=== PATIENT | male | born 1970 | race Caucasian/White ===

== ENCOUNTER 2018-03-15 09:02 | Emergency (ER) | payer OTHER ==
[~2018-03-15] VITALS: Ht 177.8 cm; Wt 136.1 kg
[~2018-03-15 09:02] MED LIST: HYDROCODONE; Z.1.HYDROCHLOROTH12. PO
[2018-03-15] MEDS ORDERED: ONDANSETRON HCL INJ 2 MG/ML VIAL IV NR ×2 (09:20→11:02)
[2018-03-15] MEDS ORDERED: SODIUM CHLORIDE 0.9% 1000ML 1,000 ML IV STA (09:20)
[2018-03-15] MEDS ORDERED: PANTOPRAZOLE 40 MG 10ML VIAL IV NR (09:20)
[2018-03-15] MEDS ORDERED: KETOROLAC TROMETHAMINE 30 MG/ML VIAL IV NR (09:30)
[2018-03-15 09:42] LABS: BASOPHILS % 0.5 % (0.0-1.0); EOSINOPHILS # (AUTO) 0.2 (0.0-0.4); EOSINOPHILS % 1.8 % (0.0-6.0); HEMATOCRIT 49.3 % (38.2-49.6); HEMOGLOBIN 16.6 g/dL (14.0-18.0); LYMPHOCYTES # (AUTO) 2.6 (1.0-3.2); LYMPHOCYTES % 29.7 % (18.0-39.1); MEAN CORPUSCULAR HEMOGLOBIN 28.9 pg (28-32); MEAN CORPUSCULAR HGB CONC 33.7 g/dL (31-35); MEAN CORPUSCULAR VOLUME 85.7 fL (81-99); MONOCYTES # (AUTO) 0.6 (0.2-0.8); MONOCYTES % 7.3 % (4.4-11.3); NEUTROPHILS # (AUTO) 5.3 (2.1-6.9); NEUTROPHILS % 60.4 % (38.7-80.0); PLATELET COUNT 217 x10e3/uL (140-360); RED BLOOD COUNT 5.75 x10e6/uL (4.3-5.7); RED CELL DISTRIBUTION WIDTH 14.1 % (11.7-14.4)
[2018-03-15 09:44] LABS: CLARITY,URINE HAZY (CLEAR); COLOR,URINE YELLOW (YELLOW); KETONES,URINE NEGATIVE (NEGATIVE); LEUKOCYTE ESTERASE ,URINE NEGATIVE (NEGATIVE); NITRITE,URINE NEGATIVE (NEGATIVE); PROTEIN,URINE DIPSTICK NEGATIVE (NEGATIVE); URINE UROBILINOGEN 1 mg/dL (0.2 - 1)
[2018-03-15 09:45] LABS: BILIRUBIN,URINE NEGATIVE (NEGATIVE)
[2018-03-15] MEDS ORDERED: HYDROMORPHONE 2MG/ML 2 MG/ML ML IV NR (09:45)
[2018-03-15 09:58] VITALS: BP 140/96
[2018-03-15 10:01] VITALS: BP 142/87
[2018-03-15 10:01] LABS: INR 1.02; PROTHROMBIN TIME 14.3 seconds (11.9-14.5)
[2018-03-15 10:09] LABS: RBC,URINE 21-50 /HPF (0-5)
[2018-03-15 10:14] LABS: ALANINE AMINOTRANSFERASE 36 IU/L (0-55); ALBUMIN 3.4 g/dL (3.5-5.0); ALBUMIN/GLOBULIN RATIO 0.9 (0.8-2.0); ALKALINE PHOSPHATASE 81 IU/L (40-150); ANION GAP 15.3 mmol/L (8-16); BLOOD UREA NITROGEN 13 mg/dL (7-26); BUN/CREATININE RATIO 12 (6-25); CALCIUM 8.3 mg/dL (8.4-10.2); CARBON DIOXIDE 21 mmol/L (22-29); CHLORIDE 106 mmol/L (98-107); CREATINE KINASE 92 IU/L (30-200); CREATININE, SERUM 1.13 mg/dL (0.72-1.25); EST GLOMERULAR FILTRATION RATE > 60 ML/MIN (60-); GLUCOSE 164 mg/dL (74-118); MAGNESIUM 2.3 MG/DL (1.3-2.1); POTASSIUM 4.3 mmol/L (3.5-5.1); SODIUM 138 mmol/L (136-145)
[2018-03-15 10:16] LABS: PARTIAL THROMBOPLASTIN TIME 30.3 seconds (23.8-35.5)
--- NOTE | 2018-03-15 10:41 | Diagnostic Imaging Report ---
CT Abdomen and Pelvis without contrast INDICATION: Right flank pain and urinary frequency, history of kidney stones TECHNIQUE: Thin collimation axial images obtained from the diaphragm to the level of the pubic symphysis without nonionic intravenous contrast. Dose reduction techniques used: Automated exposure control, adjustment of the mAs and/or kVp according to patient size, standardized low-dose protocol, and/or iterative reconstruction technique. RADIATION DOSE: Total DLP: 1340.7 mGy*cm Estimated effective dose: (DLP x 0.015 x size factor) mSv CTDIvol has been reviewed. It is below the limits set by the Radiation Protocol Committee (RPC). COMPARISON: CT abdomen/pelvis 04/10/2012. ABDOMEN FINDINGS: Lung Bases: Punctate calcified granuloma in the right lower lobe. A band of chronic atelectasis/scar in the lingula is stable. Visualized portion of the mediastinum is unremarkable. Liver: Diffusely decreased in attenuation consistent with steatosis. The right lobe measures 22 cm in length. No soft tissue mass. Gallbladder: Present and contains dependently layering gallstones measuring up to 10 mm. No gallbladder wall thickening. No ductal dilatation. Pancreas: Normal attenuation without mass. Spleen: Normal size without mass. Adrenal Glands: No evidence for mass. Kidneys: Right: Mild fullness of the renal pelvis. No significant perinephric inflammation. No intrarenal calculus or cortical mass. Left: No renal calculus. No cortical mass or hydronephrosis Lymph Nodes: There is haziness of the small bowel mesentery without associated lymphadenopathy. A prominent left external iliac chain lymph node measures 17 mm and is stable. Aorta: Normal in diameter. PELVIS FINDINGS: Bowel: Stomach: Normal in caliber with normal wall thickness. Small Bowel: Normal in caliber with normal wall thickness. Large Bowel: Diverticulosis coli, predominantly in the sigmoid colon. No associated inflammation. Appendix: Normal. Bladder: Well distended and is normal. It contains a calcification measuring 4 mm adjacent to the right ureteral orifice. Ureters: The right ureter is mildly distended throughout. Left ureter is normal. No free fluid or fluid collection. Bones: Mild to moderate degenerative changes of the lower lumbar spine particularly at L5-S1. Soft tissues: Unremarkable. IMPRESSION: 1. Mild right hydroureteronephrosis secondary to a calculus, now located within the bladder at the UVJ. No intrarenal calculi. 2. Steatosis and hepatomegaly. 3. Cholelithiasis. Normal biliary tree. Signed by: Dr. Alfie Rodriguez MD on 03/15/2018 10:37 AM
== END 2018-03-15 11:42 | disposition home or self-care (01) ==
LOC: ER 09:02
DX: M54.5 Low back pain (principal); R10.9 Unspecified abdominal pain; R11.0 Nausea; N20.1 Calculus of ureter; K80.20 Calculus of gallbladder without cholecystitis without obstruction; I10 Essential (primary) hypertension
CPT/HCPCS: 36415; 74176; 80053; 81001; 82550; 82553; 83735; 84484; 85025; 85610; 85730; 87086; 99284; J1170; J1885; J2405; J7030

== ENCOUNTER → 2019-10-08 | Outpatient (CLI) | payer OTHER ==
--- NOTE | 2019-10-08 12:50 | Diagnostic Imaging Report ---
Exam: KUB - 2 views Indication: Renal calculi Comparison: CT abdomen and pelvis of 03/15/2018 Findings: No radiographically apparent urinary calculi. Radiopaque gallstones. Nonobstructive bowel gas pattern. No free air. No acute osseous injury. Impression: No radiographically apparent urinary calculi. Cholelithiasis. Signed by: Lucas Yin MD on 10/08/2019 12:47 PM
--- NOTE | 2019-10-08 13:22 | Diagnostic Imaging Report ---
EXAM: Renal Ultrasound INDICATION: ^[id number] ^[id number] ^CALCULUS OF KIDNEY COMPARISON: CT abdomen and pelvis of 03/15/2018 TECHNIQUE: Transverse and longitudinal images of the kidneys and bladder were obtained. FINDINGS: Right Kidney: Length: 12.6 cm Appearance: Normal echogenicity. Collecting system: No hydronephrosis Stones: None Cyst/Mass: None Left Kidney: Length: 11.5 cm Appearance: Normal echogenicity. Collecting system: No hydronephrosis Stones: None Cyst/Mass: None Bladder: No mass or calculi. Bilateral ureteral jets visualized. Prevoid volume estimate of 137cc. Prostate not well visualized. IMPRESSION: No hydronephrosis or renal calculi. Signed by: Lucas Yin MD on 10/08/2019 1:19 PM
== END ==
LOC: US 12:07
PROVIDERS: ATTEND Urology
DX: N20.0 Calculus of kidney (principal)
CPT/HCPCS: 74018; 76770

== ENCOUNTER 2021-06-30 02:23 | Emergency (ER) | payer BC, OTHER ==
[~2021-06-30] VITALS: Ht 177.8 cm; Wt 136.1 kg
[2021-06-30] MEDS ORDERED: LIDOCAINE 4% PATCH TP STA (02:27)
[2021-06-30] MEDS ORDERED: KETOROLAC TROMETHAMINE 30 MG/ML VIAL IM STA (02:27)
[2021-06-30] MEDS ORDERED: ACETAMINOPHEN 325 MG TAB PO ONE (02:30)
[2021-06-30] MEDS ORDERED: LIDOCAINE1 EAC1 EXT (02:30)
[2021-06-30] MEDS ORDERED: DEXAMETHASONE SOD PHOS 10 MG/1 ML VIAL IM ONE (02:30)
== END 2021-06-30 02:58 | disposition home or self-care (01) ==
LOC: VACCPMC 02:29 → ER 02:58
DX: M54.42 Lumbago with sciatica, left side (principal); I10 Essential (primary) hypertension; Z87.442 Personal history of urinary calculi
CPT/HCPCS: 99282; J1100; J1885

== ENCOUNTER 2022-03-26 22:33 | Emergency (ER) | payer BC, OTHER ==
[~2022-03-26] VITALS: Ht 177.8 cm; Wt 136.1 kg
[~2022-03-26 22:33] MED LIST changes: +LIDOCAINE1 EAC1 EXT
[2022-03-26] MEDS ORDERED: BACITRACIN ZINC 0.9GM TP ONE (23:00)
== END 2022-03-26 23:40 | disposition home or self-care (01) ==
LOC: ER 23:02
DX: S60.512A Abrasion of left hand, initial encounter (principal); J34.89 Other specified disorders of nose and nasal sinuses; Y04.0XXA Assault by unarmed brawl or fight, initial encounter; Y92.89 Other specified places as the place of occurrence of the external cause; I10 Essential (primary) hypertension; Z87.442 Personal history of urinary calculi
CPT/HCPCS: 99283